=== PATIENT | male | born 1990 | race Caucasian/White ===

== ENCOUNTER 2020-06-23 11:00 | Outpatient (RCR) | payer OTHER, SELFPAY ==
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
--- NOTE | 2020-05-21 15:22 | PTOPEVAL ---
PHYSICAL THERAPY RE-EVALUATION and UPDATED PLAN OF CARE Thank you for referring Valentino Joy to [facility].? Valentino is scheduled to be seen for physical therapy? 2x/week for 6 weeks. Please review, sign, date and return this plan of care CAMELIA. I agree with and certify that the following plan of care is medically necessary. Referring Physician Date Admitting Provider: Attending Provider: Chepe Spaulding MD Referring Provider: Therapy Assessment Status Assessment Status Assessment Status Re-evaluation Evaluation Information Problem Diagnosis R knee arthroscopic quad ACL reconstruction, possible medial/lateral menisc Subjective Information Valentino reports no pain per se Query Text:As Reported By Patient/ with R knee - more of a Family healing sensation and occasional ache. No problems on stairs or with walking - taking a side step can feel odd at times. Pain Assessment Self Report Pain Assessment Right Knee(s) Reported Pain Level 0 Pain Description Aching Lowest Pain Intensity 0 Greatest Pain Intensity 0 Lower Extremity Range of Motion Knee Range of Motion Right Knee Extension Range of Motion - Active 130 Query Text: Knee Range of Motion Comments 1 degree hyperextension - supine prone - ~ 1 difference ~1 degree Lower Extremity Muscle Strength Testing Hip Strength Right Hip Flexion Strength 5 Normal Hip Extension Strength 5 Normal Hip Abduction Strength 4 Good Hip Medial Rotation Strength 5 Normal Hip Lateral Rotation Strength 4+ Good + Knee Strength Right Knee Flexion Strength 5 Normal Knee Extension Strength 5 Normal Balance Assessment Time Up Go (TUG) Timed Up and Go Test (TUG) (Seconds) 9 Assistive Devices None 5 Time Sit to Stand Time in Seconds 10 5 Time Sit to Stand Comments no hands Gait Assessment Gait Pattern Assessment Other Gait Observations symmetrical gait pattern - heel/toe progress, stance/ swing phases, wt bearing Stair Climbing Assessment Stair Climbing Assessment Stair Climbing Assistive Devices None Number of Steps Climbed (Steps) 4 Number of Repetitions (Repetitions) 2 Technique Alternating Steps Stair Climbing Direction Both Up and Down Stair Climbing Ability Independent Stair Climbing Comments without deviation PT Clinical Summary PT Clinical Summary LE functional scale - 61/80
--- NOTE | 2020-05-26 13:08 | PCPTNOTE ---
Patient called & cancelled scheduled appointment this date no reason given.
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
--- NOTE | 2020-06-04 11:27 | PCPTNOTE ---
Patient called & cancelled scheduled appointment this date no reason left on the voicemail.
--- NOTE | 2020-06-11 13:44 | PCPTNOTE ---
Patient called & cancelled scheduled appointment this date due to having another appointment.
--- NOTE | 2020-06-25 11:35 | PCPTNOTE ---
Patient did not show up for scheduled appointment this date. Follow up phone call made - pt forgot about appointment was filling out paperwork at work. Saw MD - pleased with progress to continue with PT x 6 wks.
--- NOTE | 2020-06-30 11:31 | PCPTNOTE ---
Patient did not show up for scheduled appointment this date; called and left voicemail with reminder for next appointment which is patient re-eval for 07/02/20 @ 11am.
--- NOTE | 2020-07-02 11:20 | PCPTNOTE ---
Valentino did not show for today's re-evaluation appointment. Phone call made. Message left that I would discharge him from PT unless he calls to reschedule appointment.
--- NOTE | 2020-07-07 08:05 | PCPTNOTE ---
PHYSICAL THERAPY DISCHARGE NOTE Admitting Provider: Attending Provider: Chepe Spaulding MD Patient:Valentino Joy Date of :1990 Valentino has not returned for any further treatments since 06/23/2020, therefore he will be discharged at this time. Valentino?s initial visit was on 04/07/2020 13:30 and he had a total of 18 visits. He did not show for his last 3 visits including his re-evaluation visit on 06/23/20. The goals have been met for the most part. Since he did not attend his re-evaluation visit I was unable to measure functional abilities such as single leg jump, triple leg jump, functional reach, etc. He was doing well with higher leveled activities including treadmill, ladder drills, hopping, jumping, etc. Thank you for referring Valentino to [facility]. Please review, sign, date and return this discharge summary CAMELIA. I have been updated about Valentino's current status and I agree with discharge from the above service at this time. Referring Physician Date
== END 2020-07-06 23:59 | disposition home or self-care (01) ==
LOC: ANHPT 11:00
PROVIDERS: PCP Family Medicine
DX: Z48.89 Encounter for other specified surgical aftercare (principal)
CPT/HCPCS: 97110; 97116; 97140; 97161

== ENCOUNTER → 2020-08-06 06:49 | Outpatient (CLI) | payer OTHER, SELFPAY ==
[2020-08-07 21:01] LABS: SARS-CoV-2 RNA PCR Negative
== END ==
PROVIDERS: PCP Family Medicine; Visit Provider Physician Assistant Medical
DX: R05 Cough (principal); Z20.822 Contact with and (suspected) exposure to COVID-19
CPT/HCPCS: C9803; U0003; U0005

== ENCOUNTER 2023-10-19 11:23 | Emergency (ER) | payer SELFPAY ==
--- NOTE | 2023-10-19 11:29 | ED.SKABFB ---
HPI - Skin/Abscess/Foreign Bdy General Chief complaint: Skin/Abscess/Foreign Body Stated complaint: skin irriration nape region Time Seen by Provider: 10/19/23 11:36 Source: patient, RN notes reviewed and old records reviewed Mode of arrival: ambulatory Limitations: no limitations History of Present Illness HPI narrative: 33-year-old male presents to the [facility] with a irritation/rash to the only the right side of the posterior neck and into right lateral neck to the collarbone. Stops exactly at midline Vesicular rash noted to the collar bone and lateral neck area. Crusting noted to the lower scalp area States it is irritating and at times painful. Denies itching. No treatment tried prior to Onset (ago): day(s) (3) Treatments prior to arrival: none Related Data Allergies Allergy/AdvReac Type Severity Reaction Status Date / Time No Known Allergies Allergy Verified 08/08/22 13:25 Review of Systems Review of Systems: All systems reviewed & are unremarkable except as noted in HPI and below Constitutional: Constitutional: Reports no additional constitutional complaints Eyes: Eyes: Reports no additional eye complaints ENT: Reports system reviewed and no additional complaints, except as documented Cardiovascular: Cardiovascular: Reports no additional cardiovascular complaints, Denies chest pain and Denies dyspnea Respiratory: Respiratory: Reports no additional respiratory complaints, Denies chest congestion, Denies cough and Denies dyspnea Gastrointestinal: Gastrointestinal: Reports no additional gastrointestinal complaints, Denies abdominal pain, Denies nausea and Denies vomiting Musculoskeletal: Musculoskeletal: Reports no additional musculoskeletal complaints Integumentary/Breasts: Skin/Breast: Reports as per HPI, Reports rash, Reports skin pain and Denies skin swelling Neurologic: Reports system reviewed and no additional complaints, except as documented Psychiatric: Psychiatric: Reports no additional psychiatric complaints Allergic/Immunologic: Allergic/Immunologic: Reports no additional allergic/immunologic complaints [facility] Past Medical History Medical History Adult BMI 26.0-26.9 kg/sq m BMI 27.0-27.9,adult Surgical History Surgical History H/O right knee surgery Family History Family History Grandparent Carcinoma of colon Family history of coronary artery disease Father No problems noted. Mother No problems noted. Sibling No problems noted. 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 There is no relevant family history pertinent to the patient complaint. Exam Const: General: cooperative, healthy appearing, comfortable, no acute distress, well developed, alert and well nourished Nutritional Appearance: well nourished Orientation/consciousness: patient oriented x3 Limitations: no limitations HENMT: Head: normal to inspection Ears: hearing grossly normal bilaterally and external ears normal Face/Nose/Sinus: Normal external nose present, Normal nares present, Normal nasal mucous membranes and turbinates present, normal facial exam and face symmetric Face and sinus: normal facial exam and face symmetric Eyes: General: appearance normal, both eyes and all related structures Alignment
[2023-10-19 11:36] VITALS: BP 117/80; PULSE 76; RESP 16; TEMP 36.6; O2SAT 100
== END 2023-10-19 11:49 | disposition home or self-care (01) ==
PROVIDERS: Emergency Provider Nurse Practitioner; PCP Family Medicine
DX: B02.9 Zoster without complications (principal)
CPT/HCPCS: 99213; G0463